=== PATIENT | female | born 1995 | race Caucasian/White ===

== ENCOUNTER 2019-07-23 19:01 | Inpatient (IN) | payer OTHER, MEDICAID, SELFPAY ==
[2019-07-23 19:15] VITALS: BP 100/69; PULSE 109
[2019-07-23 19:16] VITALS: BP 111/87; PULSE 108
[2019-07-23 19:42] VITALS: BMI 38.7
--- NOTE | 2019-07-23 19:44 | LDADM ---
This patient, Lorna Lawrence, was admitted to Labor/Delivery/Recovery 102 on 07/23/19 at 19:01. Plans for labor, pain management and were discussed with patient. Patient/family oriented to hospital policies and general routines including ID bracelet, bed and alarms, visiting hours, pain management, procedures, bathroom and other care routines, personal items, smoking policy, room service/diet and guest tray routines, infant security routines, and visiting hours. Patient/Family are encouraged to report perceived risks to care and to ask questions if they do not understand what they are told or what they should do. See OBIX for further documentation.
[2019-07-23 19:58] LABS: Hematocrit 37.8 % (37.0-47.0); Hemoglobin 12.6 g/dL (12.0-15.0); Immature Platelet Fraction Pct 12.9 % (0.9-11.2); Mean Corpuscular HGB Conc 33.3 g/dl (32-36); Mean Corpuscular Hemoglobin 26.4 pg (26-34); Mean Corpuscular Volume 79.2 fl (80-100); Mean Platelet Volume 12.8 fl (7.4-10.4); Platelet Count Result 217 k/mm3 (150-375); Red Blood Count 4.77 M/mm3 (4.2-5.4); Red Cell Distribution Width 13.5 % (11.5-14.5)
[2019-07-23] MEDS: DINOPROSTONE 10 MG VAG INSERT VAGINAL (20:03)
[2019-07-23 20:17] LABS: Band Neutrophils Percent 1 % (0-6); Giant Platelets Present; Monocytes Absolute Manual 0.48 K/mm3 (0.1-0.90); Monocytes Percent Manual 4 % (3-9); Neutrophils Absolute Manual 8.52 K/mm3 (1.7-7.2); Neutrophils Percent Manual 70 % (46-73); Platelet Estimate Adequate (Adequate); Total Cells Counted 100
[2019-07-23 23:07] VITALS: TEMP 37
[2019-07-24] VITALS (56 sets, daily range): BP systolic 91–135; BP diastolic 45–91; PULSE 66–148; TEMP 36.4–37.2; O2SAT 75–100
[2019-07-24 07:36] LABS: Rapid Plasma Reagin Non-Reactive (NonReactive)
[2019-07-24] MEDS: MISOPROSTOL 25 MCG TABLET VAGINAL ×2 (08:21→12:25)
--- NOTE | 2019-07-24 15:45 | WPDANESEPPF ---
Anes - Initial Pre Proc Eval Procedure: Labor Epidural Date/Time: 07/24/19 15:45 Surgeon: Mat Gonzalez MD Pre Op Diagnosis: IOL Patient Data Age: 24 Gender: F Height: 1.68 m Weight: 109 kg Last Vital Signs Temp 37.0 C 07/24/19 14:00 Pulse 92 07/24/19 14:00 BP 113/68 07/24/19 14:00 Allergies Allergy/AdvReac Type Severity Reaction Status Date / Time metoclopramide [From Reglan] Allergy Other Verified 07/03/19 12:29 phenazopyridine Allergy Other Verified 07/03/19 12:29 [From Pyridium] Home Medications Medication Instructions Recorded Confirmed Type 400 mcg PO DAILY 12/21/18 07/23/19 History omeprazole 20 mg PO AC PRN 07/03/19 07/23/19 History Laboratory Tests 07/23/19 07/23/19 07/23/19 19:47 19:47 19:47 WBC 12.0 K/mm3 H K/mm3 (4.5-10.0) RBC 4.77 M/mm3 M/mm3 (4.2-5.4) Hgb 12.6 g/dL g/dL (12.0-15.0) Hct 37.8 % % (37.0-47.0) MCV 79.2 fl L fl (80-100) MCH 26.4 pg pg (26-34) MCHC 33.3 g/dl g/dl (32-36) RDW 13.5 % % (11.5-14.5) Plt Count 217 k/mm3 k/mm3 (150-375) MPV 12.8 fl H fl (7.4-10.4) Immature Gran % (Auto) Not Reportable Neut % (Auto) Not Reportable Lymph % (Auto) Not Reportable Reagan % (Auto) Not Reportable Eos % (Auto) Not Reportable Baso % (Auto) Not Reportable Lymph # (Auto) Not Reportable Reagan # (Auto) Not Reportable Eos # (Auto) Not Reportable Baso # (Auto) Not Reportable Abs Immat Gran (auto) Not Reportable Absolute Neuts (auto) Not Reportable Absolute Nucleated RBC Not Reportable Total Counted 100 Neutrophils % (Manual) 70 % % (46-73) Band Neutrophils % 1 % % (0-6) Lymphocytes % (Manual) 25.0 % % (18-44) Monocytes % (Manual) 4 % % (3-9) Nucleated RBC % Not Reportable Abs Neuts (Manual) 8.52 K/mm3 H K/mm3 (1.7-7.2) Abs Lymphs (Manual) 3.00 K/mm3 K/mm3 (1.1-4.5) Abs Monocytes (Manual) 0.48 K/mm3 K/mm3 (0.1-0.90) Platelet Estimate Adequate (Adequate) Giant Platelets Present % Immature Plt Fraction 12.9 % H % (0.9-11.2) RPR Non-reactive (NonReactive) SARS-CoV-2 RNA (RT-PCR) Blood Type B Positive Antibody Screen Negative 07/24/19 08:16 WBC RBC Hgb Hct MCV MCH MCHC RDW Plt Count MPV Immature Gran % (Auto) Neut % (Auto) Lymph % (Auto) Reagan % (Auto) Eos % (Auto) Baso % (Auto) Lymph # (Auto) Reagan # (Auto) Eos # (Auto) Baso # (Auto) Abs Immat Gran (auto) Absolute Neuts (auto) Absolute Nucleated RBC Total Counted Neutrophils % (Manual) Band Neutrophils % Lymphocytes % (Manual) Monocytes % (Manual) Nucleated RBC % Abs Neuts (Manual) Abs Lymphs (Manual) Abs Monocytes (Manual) Platelet Estimate Giant Platelets % Immature Plt Fraction RPR SARS-CoV-2 RNA (RT-PCR) Pending Blood Type Antibody Screen Patient hx anesthesia problems: none Family hx anesthesia problems: none PMFSH Past Medical History Medical History No active medical problems Family History Family History Other Unknown family medical history Social History Social History Smoking status: Never smoker Substance use: never Spiritual care concerns: No Anes - Eval Final PreProcedure Day of Procedure 07/24/19 15
[2019-07-24] MEDS: LACTATED RINGERS 1,000 ML 125 ML IV CONT ×3 (16:10→23:42)
[2019-07-24 17:44] LABS: SARS-CoV-2 RNA PCR Negative
--- NOTE | 2019-07-24 17:56 | WPDOBADMIT ---
Obstetrics - Admit Note Admission Note: Patient doing well AROM clear fluid /-2 vertex clear fluid/. record reviewed. No pertinent additions to the history and/or any subsequent changes in the physical findings that are not consistent with the expected course of the were found. Additions to the history and/or subsequent changes in the physical findings follow. None.
[2019-07-24] MEDS: OXYTOCIN 30 UNITS/NS 500 ML 30 UNITS/500 ML BAG IV CONT (20:37)
[2019-07-24] MEDS: ONDANSETRON INJ 4 MG/2 ML VIAL IV PUSH (23:23)
[2019-07-25] VITALS (106 sets, daily range): BP systolic 93–171; BP diastolic 39–113; PULSE 54–150; RESP 16–18; TEMP 36.7–38.2; O2SAT 95–100
[2019-07-25] MEDS: LACTATED RINGERS 1,000 ML 125 ML IV CONT (05:54)
[2019-07-25] MEDS: OXYTOCIN 30 UNITS/NS 500 ML 30 UNITS/500 ML BAG IV CONT (07:34)
[2019-07-25] MEDS: BENZOCAINE 20% AER SPR (*SP) 56 GM CAN 1 SPRAY TOPICAL (09:32)
[2019-07-25] MEDS: IBUPROFEN 600 MG TABLET PO ×2 (09:32→17:18)
[2019-07-25] MEDS: WITCH HAZEL 40 PADS 1 PAD TOPICAL (09:32)
--- NOTE | 2019-07-25 09:51 | PC.NURSE ---
Pt arrived on unit via wheelchair accompanied by spouse and and taken to room 278. Pt oriented to room and surrounding area. PT introductions made and plan of care discussed per post , pain management, breast feeding, daily care activities. PT verbalized understanding of such care. Welcome packet reviewed and discussed.
[2019-07-25] MEDS: MULTIVIT/MIN/PREN/FOL AC/IRON TABLET 1 TAB PO (10:35)
[2019-07-25] MEDS: DOCUSATE SODIUM 100 MG CAPSULE PO ×2 (10:35→17:18)
[2019-07-25] MEDS: POLYSACCHARIDE IRON COMPLEX 150 MG CAPSULE PO (10:35)
[2019-07-25] MEDS: ACETAMINOPHEN 325 MG TABLET 650 MG PO ×2 (10:36→17:18)
[2019-07-25] MEDS: LANOLIN (LANSINOH) 7.5 GM CREAM 1 APPLIC TOPICAL (10:37)
--- NOTE | 2019-07-25 11:00 | PC.NURSE ---
Consulted with patient, mother reports infant has been sleepy and has not latched since . Infant will make attempts but unable to draw nipple in deeply. Reviewed infant feeding cues, frequencies, duration of feedings, feeding elimination flow sheet, and signs of adequate intake. Demonstrated stimulation techniques to wake for feeding. Assisted with to breast. Reviewed positioning/alignment in cross cradle, holding breast in U hold and guided asymmetrical latch on. was sleepy and made a few weak attempt to latch. again stimulated to wake, more eager with some good attempts for 15 minutes. unable to draw nipple in. Offered and explained a nipple shield. Nipple shield provided to mother due to ineffective latch. Discussed nipple shield precautions and possible complications. Instructions given on application and cleaning of shield. Patient able to return demonstration on proper application of shield. Discussed the need to initiate pumping if continues to nurse with the shield. Patient verbalizes understanding. With shield in place was able to latch correctly. Infant nursed eagerly with steady draws for burst followed with long pausing, occasional swallowing noted. Reviewed signs of a correct latch, effective nursing and suck swallow ratio. was able to maintain latch without discomfort to mother. Nipple care reviewed. Encouraged parents to stimulate to keep awake and nursing effectively for increased intake and assist with maintaining deep latch. FOB at bedside eager to assist. Instructed mother to call out for RN assistance if she is unable to latch infant for feeding or she has discomfort with nursing. Instructed feeding should be initiated three hours from start of last feeding or if feeding cues are noted before. Mother voiced understanding of information shared.
--- NOTE | 2019-07-25 14:10 | PC.NURSE ---
Mother called out for assist with feeding. With shield in place infant was able to latch correctly. Infant nursed eagerly with steady draws for burst followed with long pausing, occasional swallowing noted. is more awake and eagerly nursing this feeding. Reviewed signs of a correct latch, effective nursing and suck swallow ratio. was able to maintain latch without discomfort to mother. Nipple care reviewed. Encouraged parents to stimulate to keep awake and nursing effectively for increased intake and assist with maintaining deep latch. FOB at bedside eager to assist. Instructed mother to call out for RN assistance if she is unable to latch infant for feeding or she has discomfort with nursing. Instructed feeding should be initiated three hours from start of last feeding or if feeding cues are noted before. Mother voiced understanding of information shared.
--- NOTE | 2019-07-25 14:20 | PM.OBPRVD ---
OB - Delivery Note Procedure Delivery date: 07/25/19 events: Labor Induction Intrapartal events: None Induction method: AROM and per pitocin protocol Delivery monitor: external FHT and external uterine Route of delivery: Laceration description: None Delivery repair: vicryl Specimen: Yes Estimated blood loss (mL): 75 Anesthesia type: Epidural [place] Baby Date of : 07/25/19 Time of : 14:02 Weeks of gestation at delivery: 39 gender: Female Weight (pounds): 7 Weight (ounces): 6 presentation: vertex Placenta delivery description: Spontaneous cord vessel description: 3 Vessels and Nuchal Cord score one minute: 9 score five minutes: 9
--- NOTE | 2019-07-25 14:26 | P.PCNOB_ITS ---
OB - Delivery Note Procedure events: Labor Induction Intrapartal events: None Laceration description: None Estimated blood loss (mL): 75 Anesthesia type: Epidural [place] Baby Date of : 07/25/19 Time of : 14:02 Weeks of gestation at delivery: 39 gender: Female Weight (pounds): 7 Weight (ounces): 6 presentation: vertex Placenta delivery description: Spontaneous score one minute: 9 score five minutes: 9
--- NOTE | 2019-07-25 14:28 | P.PCNOB_ITS ---
OB - Delivery Note Procedure Delivery date: 07/25/19 events: Labor Induction Intrapartal events: None Induction method: AROM, per misoprostol protocol and per pitocin protocol Delivery monitor: external FHT, external uterine and internal uterine Route of delivery: Laceration description: Perineal - 2nd Degree Delivery repair: vicryl Estimated blood loss (mL): 200 Anesthesia type: Epidural [place] Baby Date of : 07/25/19 Time of : 06:58 Weeks of gestation at delivery: 39 Infant gender: Female Weight (pounds): 7 Weight (ounces): 5 presentation: vertex Placenta delivery description: Spontaneous cord vessel description: 3 Vessels and Clamped/Cut score one minute: 9 score five minutes: 9
--- NOTE | 2019-07-25 17:01 | PC.NURSE ---
Breast pump provided due to nipple shield use. Instructions given on breast pump care and usage, pumping schedule, nipple care, and collection and storage of breast milk. Encouraged [id number], breast massage and manual expression to stimulate supply. Assessed patient for correct flange size, placement and draw. Patient verbalizes and demonstrates understanding of instructions.
[2019-07-26 05:32] LABS: Hematocrit 30.4 % (37.0-47.0); Hemoglobin 9.9 g/dL (12.0-15.0)
[2019-07-26 07:45] VITALS: BP 97/61; PULSE 72; RESP 18; TEMP 37; O2SAT 99
--- NOTE | 2019-07-26 07:55 | PM.OBPNVD ---
OB - PN: Subj Subjective Date/time seen: 07/26/19 07:55 S: doing well no complaints concerned with breast feeding OB - PN: Obj Data Labs CBC & Chem 7: 07/26/19 04:34 Labs: Laboratory Results - last 24 hr 07/26/19 04:34 Hgb 9.9 L Hct 30.4 L OB - PN A/P Assessment and Plan (1) (normal spontaneous vaginal delivery): Code(s): O80 - Encounter for full-term uncomplicated delivery Status: Acute Assessment and Plan: continue with pp care. Time Spent With Patient Time: Total time spent is greater than 50% in coordination of care (as documented) at patient's floor/unit and/or counseling patient: Exam Const: General: comfortable GI: Other: ff fundus at umbilicus
[2019-07-26] MEDS: DOCUSATE SODIUM 100 MG CAPSULE PO ×2 (08:13→17:29)
[2019-07-26] MEDS: POLYSACCHARIDE IRON COMPLEX 150 MG CAPSULE PO ×2 (08:13→17:29)
[2019-07-26] MEDS: IBUPROFEN 600 MG TABLET PO (08:13)
[2019-07-26] MEDS: MULTIVIT/MIN/PREN/FOL AC/IRON TABLET 1 TAB PO (08:13)
[2019-07-26] MEDS: TETANUS,DIPHTHERIA,AC PERTUSSIS ADULT (0.5 ML) BOOSTRIX IM (08:14)
--- NOTE | 2019-07-26 10:05 | PC.NURSE ---
Mother called out for assist with feeding. Upon entering mother is tearful and attempting to breast. Mother states she is confused with feeding, she will supplement after some breastfeedings with shield if is fussy and will be sleepy after some feedings but will wake within 30 minutes wanting to feed again. Mother is tired and reports she did not sleep during the night. Suggested a feeding plan for mother to feed every three hours, then FOB supplement 15-20 mls and mother pump, allowing all to rest between feedings. Time at the breast will vary with infant's eagerness, allowing infant to attempt at lest 10 minutes and allowing to nurse both breasts if eager and has effective suckling. Reviewed infant feeding cues, frequencies, duration of feedings, feeding elimination flow sheet, and signs of adequate intake. Demonstrated stimulation techniques to wake infant for feeding. Assisted with to breast with the nipple shield. Reviewed positioning/alignment in football, holding breast in C hold and guided asymmetrical latch on. Discussed rational for each. was able to latch correctly. nursed eagerly with steady draws and occasional swallowing for short burst, followed with long pausing. Reviewed signs of a correct latch, effective nursing and suck swallow ratio. was able to maintain latch without discomfort to mother. Nipple care reviewed. Mother reports was more awake and eager this feeding than most during the night. Instructed mother to call out for RN assistance if she is unable to latch infant for feeding or she has discomfort with nursing. Instructed feeding should be initiated three hours from start of last feeding or if feeding cues are noted before. Mother voiced understanding of information shared.
[2019-07-26 18:29] VITALS: BP 122/82; PULSE 71; RESP 16; TEMP 36.9; O2SAT 95
--- NOTE | 2019-07-27 08:00 | PC.NURSE ---
PT introductions made and plan of care discussed per post , pain management, breast feeding, daily care activities and pending discharge to home. PT verbalized understanding of such care.
[2019-07-27 09:24] VITALS: BP 104/63; PULSE 83; RESP 18; TEMP 37
[2019-07-27 10:00] VITALS: PULSE 83; RESP 18; O2SAT 95
--- NOTE | 2019-07-27 10:04 | PM.OBPNVD ---
OB - PN: Subj Subjective Date/time seen: 07/27/19 10:04 Patient comments: no complaints baby status: doing well [employer] feeding status: exclusively breast feeding OB - PN: Obj Data Labs CBC & Chem 7: 07/26/19 04:34 OB - PN A/P Time Spent With Patient Time: Total time spent is greater than 50% in coordination of care (as documented) at patient's floor/unit and/or counseling patient: d/c home Review of Systems Gastrointestinal: Comments: ff below umbilicus
[2019-07-27] MEDS: DOCUSATE SODIUM 100 MG CAPSULE PO (10:17)
[2019-07-27] MEDS: POLYSACCHARIDE IRON COMPLEX 150 MG CAPSULE PO (10:18)
[2019-07-27] MEDS: IBUPROFEN 600 MG TABLET PO (10:18)
[2019-07-27] MEDS: MULTIVIT/MIN/PREN/FOL AC/IRON TABLET 1 TAB PO (10:18)
[2019-07-27] MEDS: ACETAMINOPHEN 325 MG TABLET 650 MG PO (10:19)
[2019-07-27] MEDS: MEASLES,MUMPS,RUBELLA VACCINE 0.5 ML VIAL (10:23)
--- NOTE | 2019-07-27 10:23 | PC.NURSE ---
Patient viewed the discharge video Mother & Baby Care, The First Two Weeks . Patient was given the opportunity and encouraged to ask questions. Patient verbalized understanding of information shared and has been given the mother/baby guide for home reference.
--- NOTE | 2019-07-27 12:23 | PC.NURSE ---
PT discharged to home ambulatory accompanied by spouse and and taken to waiting car. Follow up appts confirmed
--- NOTE | 2019-07-27 13:02 | PC.NURSE ---
Addendum entered by Bravo Urbina RN 07/27/19 13:03: actual time was 0800 Original Note: PT given discharge instructions per protocol and verbalized understanding of such care.
[2019-07-29 08:56] VITALS: BP 113/66; PULSE 75; RESP 20; TEMP 36.9; O2SAT 100
--- NOTE | 2019-08-12 06:25 | PM.OBDSVD ---
DS: Admitting Diagnosis Admitting Diagnosis Admitting Diagnosis: Encounter for supervision of normal , unspecified, third trimester DS: Discharge Diagnosis Discharge Diagnosis (1) (normal spontaneous vaginal delivery): Code(s): O80 - Encounter for full-term uncomplicated delivery Status: Acute OB - DS: Summary OB Procedures : None OB Procedures Intrapartum: Spontaneous Vag Delivery OB Procedures: : None Time Spent with Patient Time attestation: Total time spent providing and/or coordinating discharge services: Exam Const: General: comfortable Resp: Effort & Inspection: normal respiratory effort Cardio: Rate: regular rate GI: GI Palp: Yes Soft to palpation Discharge Plan Discharge Attending physician on discharge: Mat Gonzalez Discharging Clinician: Mat Gonzalez Patient Disposition: Home, Self-Care Activity: may shower and pelvic rest Diet: regular Discharge Instructions: Education: Mom and Baby Guide Given to: Mother Follow-Up: Call your delivering provider's office for an appointment to be seen in: 4 Weeks Mom and baby should come to the [facility] for the follow-up appointment. Appointment Date/Time: July 29, 2019 at 8:00 am What to expect at your follow-up visit: Blood Pressure Check Call [phone] if you are unable to keep your appointment time. BREAST CARE: 1. Wear a snug supportive bra. 2. For engorgement discomfort: Breast Feeding: A. Apply warm moist washcloths B. Express milk as needed to relieve engorgement C. Wear loose clothing Bottle Feeding: A. May apply ice packs 3. For sore nipples: A. Identify correct latch-on B. Apply warm moist washcloths before and after nursing C. Air dry nipples after nursing D. May apply Lansinoh cream to nipples PERINEAL CARE: 1. Until bleeding stops, use your kori bottle after urinating 2. Change your pad frequently throughout the day 3. You may take sitz baths several times a day (fill your bathtub with warm water and soak for 20 minutes.) Do NOT bathe in the water 4. No tub baths until seen by your physician - You may shower ACTIVITY: 1. Rest as much as possible. 2. Do not exercise or lift anything heavier than your baby (such as laundry or other children.) 3. Avoid stairs or driving as much as possible. 4. Do not put anything into the vagina. No douching, tampons, or sexual activity until seen by physician. NOTIFY PHYSICIAN IF YOU HAVE ANY QUESTIONS OR IF ANY OF THE FOLLOWING SYMPTOMS OCCUR: 1. If your perineum becomes red, swollen, or more painful than what you have experienced in the hospital. 2. If your vaginal bleeding becomes foul smelling. 3. If your vaginal bleeding becomes more heavy than a period or if your bleeding changes from pink to bright red. However, you may pass an occasional walnut-sized clot once or twice for the first week . 4. If you experience a sharp, shooting pain in you calves. 5. If you discover a hard, reddened area on your breast or if you experience flu-like symptoms. 6. Call for temp 100.4 or greater DIET: 1. Eat regular, well-balanced meals. 2. Drink plenty of fluids daily. If , drink to thirst. Patient Instructions: Antibiotic Form Stand Alone Forms: General Discharge Information Follow-up/Referrals: Mat Gonzalez MD [Physician] - Discharge Medications: New acetaminophen [Mapap (acetaminophen)] 325 mg Tablet 650 mg PO Q6H PRN (Reason: Mild Pain (1-3) Or Headache) RF: 0 Dermoplast (with menthol) 20-0.5 % Aerosol 1 spray topical PRN PRN (Reason: Perineal Discomfort) RF: 0 polysaccharide iron complex 150 mg iron Capsule 150 mg PO BIDWM RF: 0 docusate sodium 100 mg Capsule 100 mg PO BID PRN (Reason: Constipation) RF: 0 zolpidem 5 mg Tablet 5 mg PO HS PRN (Reason: Insom
== END 2019-07-27 12:23 | disposition home or self-care (01) | DRG 806 ==
LOC: ANHLDR 19:58 → ANHOB2 07-25 09:57
PROVIDERS: Admitting Provider Obstetrics & Gynecology; PCP Internal Medicine; Visit Provider Obstetrics & Gynecology
DX: O99.214 Obesity complicating childbirth (principal); O75.2 Pyrexia during labor, not elsewhere classified; Z37.0 Single live birth; Z3A.39 39 weeks gestation of pregnancy; E66.9 Obesity, unspecified; O70.1 Second degree perineal laceration during delivery
CPT/HCPCS: 36415; 85014; 85018; 85025; 85055; 86592; 86850; 86900; 86901; 87635; 90710; 90715; A9270; C9803; J2405; J2590; J2795; J7120; U0003

== ENCOUNTER 2021-11-10 16:54 | Outpatient (CLI) | payer OTHER, MEDICAID, SELFPAY ==
[2021-11-10 17:38] LABS: Beta HCG Quantitative < 2.39 mIU/ML
== END 2021-11-10 16:55 | disposition home or self-care (01) ==
LOC: ANHLAB 16:56
PROVIDERS: PCP Internal Medicine; Visit Provider Obstetrics & Gynecology Gynecology
DX: O20.0 Threatened abortion (principal)
CPT/HCPCS: 36415; 84702; 86850; 86900; 86901

== ENCOUNTER 2022-12-04 12:39 | Emergency (ER) | payer OTHER, MEDICAID, SELFPAY ==
--- NOTE | ~2022-12-04 | US_ITS ---
EXAMINATION: US transvaginal DATE: 12/04/2022 16:20 INDICATION: Right lower quadrant pelvic pain TECHNIQUE: Multiple transabdominal and endovaginal sonographic images of the pelvis were obtained. COMPARISON: None. FINDINGS: The uterus measures 8.9 x 3.8 x 3.7 cm. The endometrial complex measures 9 mm in thickness. 6 mm nab othian cyst at the cervix. The right ovary measures 4.8 x 3.8 x 3.7 cm. There is a 3.3 cm complex cys t in the right ovary with peripheral hypoechoic regions and anechoic regions with reticulated pattern of thin echogenic internal septations most consistent with an evolving hemorrhagic cyst. The left ov kassidy measures 2.4 x 2.0 x 2.5 cm. After flow identified in both ovaries on color Doppler. There is sma ll amount of free fluid in the pelvis. IMPRESSION: 1. 3.3 cm complex cystic lesion in the left ovary with appearance most suggestive of a hemorrhagic cy st. Recommend follow-up ultrasound in 8-12 weeks to document resolution. Reviewed, dictated and finalized at location A. IMPRESSION: 1. 3.3 cm complex cystic lesion in the left ovary with appearance most suggesti ve of a hemorrhagic cyst. Recommend follow-up ultrasound in 8-12 weeks to docum ent resolution.
[2022-12-04 12:42] VITALS: BP 138/83; PULSE 82; RESP 14; TEMP 36.7; O2SAT 99
[2022-12-04 13:13] LABS: Basophils Absolute Auto 0.1 K/mm3 (0.0-0.1); Basophils Percent Auto 0.7 % (0.2-1.2); Eosinophils Absolute Auto 0.2 K/mm3 (0-0.3); Hematocrit 44.9 % (37.0-47.0); Immature Granulocyte Absolute 0.01 K/mm3 (0.00-0.031); Immature Granulocyte Percent A 0.1 % (0-0.5); Lymphocytes Absolute Auto 2.14 K/mm3 (0.9-3.2); Lymphocytes Percent Auto 28.5 % (18.3-44.2); Mean Corpuscular HGB Conc 33.4 g/dl (32-36); Mean Corpuscular Hemoglobin 27.9 pg (26-34); Mean Corpuscular Volume 83.5 fl (80-100); Mean Platelet Volume 12.1 fl (7.4-10.4); Monocytes Absolute Auto 0.4 K/mm3 (0.1-0.6); Monocytes Percent Auto 5.3 % (2.6-8.5); Neutrophils Absolute Auto 4.8 K/mm3 (1.3-6.7); Neutrophils Percent Auto 63.4 % (45.5-73.1); Platelet Count Result 238 k/mm3 (150-375); Red Blood Count 5.38 M/mm3 (4.2-5.4); Red Cell Distribution Width 12.8 % (11.5-14.5); White Blood Count 7.5 K/mm3 (4.5-10.0)
[2022-12-04 13:17] LABS: Appearance Urine Clear (Clear); Bilirubin Urine Negative (Negative); Blood Urine Negative (Negative); Color Urine Yellow (Yellow); Glucose Urine UA Negative (Negative); Ketones Urine Trace mg/dL (Negative); Leukocyte Esterase Ur Negative LEU/UL (Negative); Nitrate Urine Negative (Negative); Protein Urine Negative (Negative); Specific Grav Ur 1.021 (1.001-1.035); pH Urine 6.5 (5.0-9.0)
[2022-12-04 13:18] LABS: Add Urine Microscopic? NO
[2022-12-04 13:22] LABS: Alanine Aminotransferase 18 U/L (6-35); Albumin Level 4.2 g/dL (3.5-5.1); Alkaline Phosphatase 63 U/L (38-126); Anion Gap 8 mmol/L (8-16); Aspartate Amino Transferase 26 U/L (14-36); Bilirubin,Total 1.5 mg/dL (0.2-1.3); Blood Urea Nitrogen 12 mg/dL (7-17); Calcium 9.2 mg/dL (8.4-10.2); Carbon Dioxide 26 mmol/L (22-30); Chloride 103 mmol/L (98-107); Estimated CRCL calculation 111 ml/min; Estimated Glomerular Filt Rate > 60; Glucose 91 mg/dL (65-110); Lipase 49 U/L (23-300); Potassium 3.7 mmol/L (3.4-5.0); Sodium 137 mmol/L (137-145)
[2022-12-04] MEDS: LACTATED RINGERS 1,000 ML 999 ML IV CONT (13:29)
[2022-12-04] MEDS: MORPHINE SULFATE (*CRX) 4 MG/ML INJ IV PUSH (13:29)
--- NOTE | 2022-12-04 14:07 | ED.ABDPAIN ---
HPI - Abdominal Pain General Chief Complaint: Abdominal Pain Stated Complaint: abd cramping Time Seen by Provider: 12/04/22 12:59 Source: patient and family ( [place]) History of Present Illness HPI narrative: 37 yo F who presents with acute abdominal pain that woke her at 0100. She had some nausea at first but denies any vomiting, diarrhea, or fevers. No vaginal discharge. She notes decreased appetite but KAILYN was a sandwich at lunch. LBM yesterday and normal. No constipation, melena, hematochezia. Only home medicaiton is B12 vitamin. Took 500mg Tylenol at 4am. This has never happened before. Initially 7/10 pain, now 3/10. LMP 11/04/2022; her periods are slightly irregular but her last period was normal duration and flow. Continues to pass flatus. No dysuria, hematuria, frequency/urgency. Sexually active with 1 male partner. No abnormal PAPs. Pain is in low abdomen, across LLQ and RLQ and inferior to umbilicus. Related Data Allergies Allergy/AdvReac Type Severity Reaction Status Date / Time metoclopramide [From Reglan] Allergy Other Verified 12/04/22 12:48 phenazopyridine Allergy Other Verified 12/04/22 12:48 [From Pyridium] [facility] Past Medical History Medical History No active medical problems (normal spontaneous vaginal delivery) Family History Family History Mother Fibroid Social History Social History Smoking status: Never smoker Substance use: never Spiritual care concerns: No Exam Const: General: healthy appearing; No confusion, diaphoretic or ill appearing Limitations: no limitations HENMT: Head: normal to inspection Face/Nose/Sinus: Normal external nose present Face and sinus: normal facial exam Eyes: Conjunctivae: conjunctivae normal Resp: Effort & Inspection: normal respiratory effort Cardio: Rate: regular rate GI: Inspection: non-distended GI Palp: Yes Soft to palpation and Yes Tenderness to palpation present (GI) (mild TTP in RLQ and LLQ) Auscultation: normal bowel sounds Other: Rovsing sign negative. Psoas sign negative. Obturator sign positive. McBurney pont tenderness equivocal. Skin: General skin exam: normal color Rashes: no rashes Other: abdominal striae but otherwise no ecchymosis or lesions Neuro: General: patient oriented x3 Speech: normal speech Psych: Mental Status: mental status grossly normal Affect: normal affect Attitude: cooperative Course Course Emergency Course: Will obtain labs and give fluids and analgesic medication. Vital Signs Vital signs: Vital Signs Temperature 98.0 F 12/04/22 12:42 Pulse Rate 82 12/04/22 12:42 Respiratory Rate 14 12/04/22 12:42 Blood Pressure 138/83 12/04/22 12:42 Pulse Oximetry 99 12/04/22 12:42 Oxygen Delivery Room Air 12/04/22 12:42 Temperature 98.0 F 12/04/22 12:42 Pulse Rate 88 12/04/22 17:05 Respiratory Rate 16 12/04/22 17:05 Blood Pressure 142/80 H 12/04/22 17:05 Pulse Oximetry 99 12/04/22 17:05 Oxygen Delivery Room Air 12/04/22 12:42 MDM - Abdominal Pain MDM Narrative Medical decision making narrative: Summers Score RLQ tenderness (No 0, Yes +2): 2 Temp 37.3C (No 0, Yes +1): 0 Rebound tenderness (No 0, Yes +1): 1 Migration of pain to the RLQ (No 0, Yes +1): 1 Anorexia (No 0, Yes +1): 0 Nausea/vomiting (No 0, Yes +1): 0 Leukocytosis >10K (No 0, Yes +2): 0 Leukocyte left shift >75% neutrophils (No 0, Yes +1): 0 Total Result = 4; appendicitis unlikely Other causes of right lower quadrant pain in my differential diagnosis include but are not limited to nephrologic diseaes like kidney stone, ovarian pathology like torsion or tubo-ovarian abscess, and other GI pathology like colitis or diverticulitis. Labs performed as below. US shows cystic lesion and evidence
[2022-12-04 14:30] VITALS: BP 118/65; PULSE 70; O2SAT 100
[2022-12-04 16:37] VITALS: BP 122/73; PULSE 76; O2SAT 100
[2022-12-04] MEDS: KETOROLAC 15 MG/ML VIAL (*BKC) IV PUSH (17:03)
[2022-12-04 17:05] VITALS: BP 142/80; PULSE 88; RESP 16; O2SAT 99
== END 2022-12-04 17:05 | disposition home or self-care (01) ==
PROVIDERS: Physician Assistant; Emergency Provider Student in an Organized Health Care Education/Training Program; PCP Internal Medicine
DX: N83.202 Unspecified ovarian cyst, left side (principal)
CPT/HCPCS: 36415; 76830; 80053; 81003; 81025; 83690; 85025; 96361; 96374; 96375; 99284; J1885; J2270; J7120

== ENCOUNTER 2024-03-20 15:51 | Outpatient (CLI) | payer OTHER, SELFPAY ==
--- NOTE | ~2024-03-20 | US_ITS ---
EXAMINATION: US pelvic complete INDICATION: Pelvic pain Comparison:12/04/2022 TECHNIQUE: Multiple transabdominal and endovaginal sonographic images of the pelvis performed. FINDINGS: The uterus measures 9.8 x 4.4 x 5.9 cm. The endometrial complex measures 1.2 cm. The right ovary measures 2.5 x 3.3 x 2.1 cm and the left ovary measures 3.6 x 2.9 x 3.5 cm. There ar e small follicles in each ovary. Normal doppler signal in both ovaries. There is no free fluid in the pelvis. There are no abnormal masses seen on either side. IMPRESSION: 1. Mildly prominent endometrium. Otherwise, unremarkable pelvic ultrasound. Reviewed, dictated and finalized at location A. OGICAL TECHNICIAN
== END 2024-03-20 15:52 | disposition home or self-care (01) ==
LOC: MICIMG 15:52
PROVIDERS: PCP Nurse Practitioner Women's Health; Visit Provider Nurse Practitioner Women's Health
DX: R10.2 Pelvic and perineal pain (principal)
CPT/HCPCS: 76856

== ENCOUNTER 2025-01-21 11:24 | Outpatient (CLI) | payer OTHER, SELFPAY ==
--- NOTE | ~2025-01-21 | US_ITS ---
EXAMINATION: US OB <=14 wk fetus w TV DATE: 01/21/2025 11:56 INDICATION: History of spontaneous . TECHNIQUE: Real-time transabdominal and transvaginal obstetric ultrasound. FINDINGS: No prior studies for comparison. The uterus measures 10.7 x 5.7 x 5.9 cm. There is an intrauterine gestational sac measuring 1.05 cm corresponding to 5 week 0 day gestation. No definitive pole identified. No heart motions. Yolk sac is present. Ovaries within normal limits without significant solid or cystic mass. Right ovary measures 2.8 x 2 x 1.8 cm. Left ovary measures 4.3 x 2.8 x 3.5 cm. IMPRESSION: 1. Intrauterine gestational sac corresponding to 5 weeks 0 day gestation without pole, consistent with early gestational age. Yolk sac is present. Recommend follow-up with serial quantitative beta-hCG levels and ultrasound as clinically warranted. Reviewed, dictated and finalized at location I. [employer] IMPRESSION: 1. Intrauterine gestational sac corresponding to 5 weeks 0 day gestation withou t pole, consistent with early gestational age. Yolk sac is present. Recom mend follow-up with serial quantitative beta-hCG levels and ultrasound as clini bert warranted.
== END 2025-01-21 11:25 | disposition home or self-care (01) ==
LOC: MICIMG 11:24
PROVIDERS: PCP Obstetrics & Gynecology Gynecology; Visit Provider Obstetrics & Gynecology Gynecology
DX: O26.21 Pregnancy care for patient with recurrent pregnancy loss, first trimester (principal); Z3A.00 Weeks of gestation of pregnancy not specified
CPT/HCPCS: 76801; 76817

== ENCOUNTER 2025-02-03 12:53 | Outpatient (CLI) | payer OTHER, SELFPAY ==
--- NOTE | ~2025-02-03 | US_ITS ---
EXAMINATION: US OB transvaginal, 02/03/2025 12:55 CLIENT SUPPORT COORDINATOR HISTORY: uncertain dates Comparison: None Technique: Nicholas-scale and color Doppler images were obtained. Findings: Intrauterine gestational sac with pole identified corresponding to 7 weeks and 4 days, heart rate 171. The uterus is anteverted measuring 10.6 x 5.8 x 6.1 cm. Sac is also demonstrated. Right ovary 3.6 x 1.8 x 2.6 cm, left ovary 2.9 x 3.1 x 3 cm, no adnexal mass, normal flow. IMPRESSION: Single live intrauterine . Reviewed, dictated and finalized at location P. NT SUPPORT COORDINATOR IMPRESSION: Single live intrauterine .
== END 2025-02-03 12:54 | disposition home or self-care (01) ==
LOC: MICIMG 12:54
PROVIDERS: PCP Obstetrics & Gynecology Gynecology; Visit Provider Obstetrics & Gynecology Gynecology
DX: Z36.87 Encounter for antenatal screening for uncertain dates (principal)
CPT/HCPCS: 76817

== ENCOUNTER 2025-02-07 17:41 | Emergency (ER) | payer OTHER, SELFPAY ==
--- OUTSIDE RECORDS SUMMARY | 2025-02-07 17:43 | XMS_ITS | Clinical Summary ---
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 Gender Identity Not on file Sexual Orientation Not on file Plan of Treatment Health Maintenance Due Date Last Done Comments CERVICAL CANCER SCREENING 01/24/2017 HPV/Cotest (21-29) 01/24/2017 PAP SMEAR 01/24/2017 DTAP/TDAP/TD VACCINES (2 - T d or Tdap) 08/30/2020 08/30/2010 INFLUENZA VACCINE (#1) 2024 4, 01/03/2012, 02/17/2011, Additional history exists HEPATITIS B VACCINES Completed 11/17/1999, 1996, 1996 HPV VACCINES Completed 01/03/2012, 08/30/2010 Insurance [employer] [id number] [facility] [place]IONS [id number] Care Teams Labview Programmer Relationship Specialty Start Date End Date Juan Alberto Foss MD [address] [place] [address] [address] [place], [place] [id number] PCP - General Internal Medicine 04/09/19
--- OUTSIDE RECORDS SUMMARY | 2025-02-07 17:43 | XMS_ITS | Clinical Summary ---
Author Organization [facility] Address [facility]ly [facility] [place] [address] Care Team Providers Care Protective Signal Installer Helper Name Role Phone Juan Alberto Foss MD Primary Care Provider [phone] Allergies Active Allergy Reactions Criticality Noted Date Comments Metoclopramide Other (see comment) 04/28/2019 Can't control muscles in face Medications vitamin, low iron, ( VITAMIN WITH IRON) 27-0.8 MG tablet Take 1 tablet by mouth daily. Active ondansetron 4 MG tablet Take 4 mg by mouth every 8 (eight) hours as needed for Nausea. Active vitamin D2, ergocalciferol, 95108 UNITS capsule Take 50,000 Units by mouth every 7 days. Active Active Problems Estimated Date of Delivery Comme nts Yes 07/29/2019 No known active problems Family History Medical History Relation Comments None Neg Hx Social History Tobacco Use Types Packs/Day Years Used Date Smoking Tobacco: Never Smokeless Tobacco: Never Alcohol Use Standard Drinks/Week Comments Not Currently 0 (1 standard drink = 0.6 oz pur e alcohol) Estimated Date of Delivery Comme nts Yes 07/29/2019 Sex and Gender Information Value Date Recorded Sex Assigned at Not on file Legal Sex Female 4:18 PM CDT Gender Identity Not on file Sexual Orientation Not on file Last Filed Vital Signs Vital Sign Reading Time Taken Comments Blood Pressure 115/61 04/28/2019 8:38 AM CDT Pulse 97 04/28/2019 8:38 AM CDT Temperature 36.7 C (98 F) 04/28/2019 8:38 AM CDT Respiratory Rate 18 04/28/2019 8:38 AM CDT Oxygen Saturation 99% 04/28/2019 8:38 AM CDT Inhaled Oxygen Concentration - - Weight 108.9 kg (240 lb) 04/28/2019 8:38 AM CDT Height 167.6 cm (5' 6) 04/28/2019 8:38 AM CDT Body Mass Index 38.74 04/28/2019 8:38 AM CDT Plan of Treatment Health Maintenance Due Date Last Done Comments Cervical Cancer Screening Pap Smear (Age 21 to 29) Every 3 Years 1996 Cervical Cancer Screening 1996 Annual Physical 01/24/1999 Hepatitis C 01/24/2014 DTaP, Tdap and Td Vaccines (3 - Td or Tdap) 08/30/2020 08/30/2010, 06/06/2009 COVID-19 Vaccine ( season) 2024 Influenza Adult (#1) 2024 12/11/2013, 01/03/2012, 02/17/2011, Additional history exists RSV Immunization or 60+ Years (1 - 1-dose 75+ series) 01/24/2071 Hepatitis B Vaccines Completed 11/17/1999, 1996, 1996 Hepatitis A Vaccines Completed 12/03/2008, 11/22/19 07 HPV Vaccines Completed 01/03/2012, 08/20, 12/03/2008 Meningococcal Vaccine Aged Out 09/12/2013, 011 No longer eligible based on patient's age to complete this topic Meningococcal B Vaccine Aged Out No l onger eligible based on patient's age to complete this topic Pneumococcal Vaccine: Pediatrics (0 to 5 Years) and At-Risk Patients (6 to 49 Years) Aged Out No longer eligible based on patient's age to complete this topic RSV Immunizations Under 20 Months Aged Out No longer eligible based on patient's age to complete this topic Insurance MEDICAID [facility] Care Teams Protective Signal Installer Helper Relationship Specialty Start Date End Date Juan Alberto Foss MD [address] [facility] [address] [place] [address] PCP - General INTERNAL MEDICINE 04/28/19
[2025-02-07 17:55] VITALS: BP 141/84; PULSE 78; RESP 20; TEMP 36.4; O2SAT 100
[2025-02-07 19:43] VITALS: BP 129/97; PULSE 82; RESP 16; O2SAT 100
[2025-02-07 19:56] VITALS: BP 129/97; PULSE 66; RESP 17; O2SAT 100
[2025-02-07 20:04] LABS: Hematocrit 44.2 % (37.0-47.0); Hemoglobin 15.3 g/dL (12.0-15.0); Immature Granulocyte Percent A 0.3 % (0-0.5); Lymphocytes Absolute Auto 2.33 K/mm3 (0.9-3.2); Mean Corpuscular HGB Conc 34.6 g/dl (32-36); Mean Corpuscular Hemoglobin 28.1 pg (26-34); Mean Corpuscular Volume 81.3 fl (80-100); Nucleated Red Blood Cells Absolute Auto 0.000 K/mm3 (0.0-0.012); Nucleated Red Blood Cells Perc 0.0 % (0.0-0.2); Platelet Count Result 255 k/mm3 (150-375); Red Blood Count 5.44 M/mm3 (4.2-5.4); White Blood Count 9.7 K/mm3 (4.5-10.0)
[2025-02-07 20:08] LABS: Alanine Aminotransferase 13 U/L (6-35); Albumin Level 4.7 g/dL (3.5-5.1); Alkaline Phosphatase 60 U/L (38-126); Anion Gap 11 mmol/L (4-12); Aspartate Amino Transferase 21 U/L (14-36); Bilirubin,Total 1.4 mg/dL (0.2-1.3); Blood Urea Nitrogen 12 mg/dL (7-17); Calcium 9.5 mg/dL (8.4-10.2); Carbon Dioxide 23 mmol/L (22-30); Chloride 104 mmol/L (98-107); Estimated CRCL calculation 120 ml/min; Estimated Glomerular Filt Rate > 60; Glucose 90 mg/dL (65-110); Lipase 59 U/L (23-300); Potassium 4.2 mmol/L (3.4-5.0); Sodium 138 mmol/L (137-145); Total Protein 8.2 g/dL (6.3-8.2)
[2025-02-07] MEDS: LACTATED RINGERS 1,000 ML 999 ML IV CONT (20:23)
--- OUTSIDE RECORDS SUMMARY | 2025-02-07 20:34 | XMS_ITS | Clinical Summary ---
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
--- OUTSIDE RECORDS SUMMARY | 2025-02-07 20:34 | XMS_ITS | Clinical Summary ---
Author Organization [facility] Address [facility] [place] [address] Care Team Providers Care Health Care Sanitary Technician Name Role Phone Juan Alberto Foss MD Primary Care Provider Allergies Active Allergy Reactions Criticality Noted Date Comments Metoclopramide Other (see comment) 04/28/2019 Can't control muscles in face Medications vitamin, low iron, ( VITAMIN WITH IRON) 27-0.8 MG tablet Take 1 tablet by mouth daily. Active ondansetron 4 MG tablet Take 4 mg by mouth every 8 (eight) hours as needed for Nausea. Active vitamin D2, ergocalciferol, 54824 UNITS capsule Take 50,000 Units by mouth [...] age to complete this topic Insurance MEDICAID [facility] Care Teams Health Care Sanitary Technician Relationship Specialty Start Date End Date Juan Alberto Foss MD [address] [facility] [address] [place] [address] PCP - General INTERNAL MEDICINE 04/28/19
[2025-02-07] MEDS: ONDANSETRON INJ 4 MG/2 ML VIAL IV PUSH (20:35)
[2025-02-07] MEDS: FAMOTIDINE 20 MG/2 ML VIAL IV PUSH (20:35)
--- NOTE | 2025-02-07 20:58 | ED_ITS ---
HPI - Nausea/Vomiting/Diarrhea General Chief complaint: Nausea/Vomiting/Diarrhea Stated complaint: dehydration- and vomiting Time Seen by Provider: 02/07/25 19:42 Source: patient Mode of arrival: ambulatory Limitations: no limitations History of Present Illness HPI Narrative: This is a 30-year-old female that presents to the emergency department for nausea and vomiting. She is currently 8 weeks . Has history of hyperemesis. She has had ultrasound this . She sees Dr. Prakash. She has had Zofran and Phenergan at home with little relief. Continues to be continuously nauseous. Was prompted to be seen in the ER for IV fluids. Denies any abdominal pain, bleeding. Related Data Allergies Allergy/AdvReac Type Severity Reaction Status Date / Time metoclopramide (From Reglan) Allergy Other Verified 02/07/25 17:58 phenazopyridine (From Allergy Other Verified 02/07/25 17:58 Pyridium) Review of Systems 2 Review of Systems: All systems reviewed & are unremarkable except as noted in HPI and below PMFSH Past Medical History Medical History No active medical problems (normal spontaneous vaginal delivery) Family History Family History Mother Fibroid Social History Social History Smoking status: Never smoker Substance use: never Spiritual care concerns: No Exam 2 Narrative: GENERAL: Well-appearing, well-nourished, and in no acute distress. HEAD: Normocephalic, atraumatic. EYES: EOMI. CHEST: Clear to auscultation. No respiratory distress. No wheezes rales or rhonchi HEART: Regular rate and rhythm. No murmur heard. Normal peripheral pulses. ABDOMEN: Soft, nontender, nondistended, normal active bowel sounds. EXTREMITIES: Normal range of motion. No edema. SKIN: Warm, dry, no rash. NEURO: No focal deficits. Alert and oriented x3. PSYCH: Normal mood and affect Course Course Emergency Course: Patient improved. Tolerating p.o. challenge Vital Signs Vital signs: Vital Signs Temperature 97.6 F 02/07/25 17:55 Pulse Rate 78 02/07/25 17:55 Respiratory Rate 20 02/07/25 17:55 Blood Pressure 141/84 H 02/07/25 17:55 Pulse Oximetry 100 02/07/25 17:55 Oxygen Delivery Room Air 02/07/25 17:55 Temperature 97.6 F 02/07/25 17:55 Pulse Rate 66 02/07/25 19:56 Respiratory Rate 17 02/07/25 19:56 Blood Pressure 129/97 H 02/07/25 19:56 Pulse Oximetry 100 02/07/25 19:56 Oxygen Delivery Room Air 02/07/25 19:43 [facility] Narrative Medical decision making narrative: Patient presents to the emergency department for nausea and vomiting in first trimester . She is afebrile and nontoxic appearing. Her vitals are stable. Cbc shows mild hemoconcentration. Metabolic panel without concerning findings. Urine without evidence of infection. Patient does have a confirmed IUP. Follows with Dr. Prakash. Patient feeling improved following hydrated. Tolerating PO challange. Will follow up with her OB Differential Diagnosis Differential Diagnosis: Nausea and vomiting in , dehydration, electrolyte derangement Lab Data [facility] Lab Attestation statement: I personally reviewed the patient's lab results. 02/07/25 19:54 02/07/25 19:54 Labs: Lab Results 02/07/25 02/07/25 02/07/25 Range/Units 19:54 21:44 21:48 WBC 9.7 (4.5-10.0) K/mm3 RBC 5.44 H (4.2-5.4) M/mm3 Hgb 15.3 H (12.0-15.0) g/dL Hct 44.2 (37.0-47.0) % MCV 81.3 (80-100) fl MCH 28.1 (26-34) pg MCHC 34.6 (32-36) g/dl RDW 12.8 (11.5-14.5) % Plt Count 255 (150-375) k/mm3 MPV 11.4 H (7.4-10.4) fl Immature Gran % (Auto) 0.3 (0-0.5) % Neut % (Auto) 68.2 (45.5-73.1) % Lymph % (Auto) 24.1 (18.3-44.2) % [facility] % (Auto) 4.5 (2.6-8.5) % Eos % (Auto) 2.3 (0-4.4) % Baso % (Auto) 0.6 (0.2-1.2) % Lymph # (Auto) 2.33 (0.9-3.2) K/mm3 [facility] # (Auto) 0.4 (0.1-0.6) K/mm3 Eos # (Auto) 0.2 (0-0.3) K/mm3 Baso # (Auto) 0.1 (0.0-0.1) K/mm3 Abs Immat Gran (auto) 0.03 (0.00-0.031) K/mm3 Absolute Neuts (auto) 6.6 (1.3-6.7) K/mm3 Absolute Nucleated RBC 0.000 (0.0-0.012) K/mm3 Nucleated RBC % 0.0 (0.0-0.2) % Sodium 138 (137-145) mmol/L Potassium 4.2 (3.4-5.0) mmol/L Chloride 104 (98-107) mmol/L Carbon Dioxide 23 (22-30) mmol/L Anion Gap 11 (4-12) mmol/L BUN 12 (7-17) mg/dL Creatinine 0.71 (0.7-1.0) mg/dL Estim Creat Clear Calc 120 ml/min Estimated GFR > 60 (59 - ) Glucose 90 (65-110) mg/dL Calcium 9.5 (8.4-10.2) mg/dL Total Bilirubin 1.4 H (0.2-1.3) mg/dL AST 21 (14-36) U/L ALT 13 (6-35) U/L Alkaline Phosphatase 60 (38-126) U/L Total Protein 8.2 (6.3-8.2) g/dL Albumin 4.7 (3.5-5.1) g/dL Lipase 59 (23-300) U/L Urine Color Dark yellow (Yellow) Urine Appearance Cloudy H (Clear) Urine pH 6.0 (5.0-9.0) Ur Specific [place] 1.036 H (1.001-1.035) Urine Protein Trace (Negative) mg/dL Urine Glucose (UA) Negative (Negative) mg/dL Urine Ketones 1+ H (Negative) mg/dL Ur Blood (Man) Negative (Negative) Urine Nitrate Negative (Negative) Urine Bilirubin Negative (Negative) Urine Urobilinogen 1.0 (<2.0) mg/dL Add Ur Microanalysis Reviewed Leukocyte Esterase Rfl Negative (Negative) ALEXI/UL Urine RBC 11-20 H (0-2) /hpf Urine WBC 0-5 (0-3) /hpf Ur Squamous Epith Cells Few (Few) /hpf Urine Bacteria 1+ H /hpf Urine Casts 0-2 Urine Mucus Present /lpf POC Urine HCG, Qual Positive (Negative) Critical Care Time Critical Care Time Critical Care Time: No Discharge Plan Discharge Clinical Impression: Nausea and vomiting during Patient Disposition: Home Condition: Improved Instructions: Nausea and Vomiting in (ED) Additional Instructions: Return to the ER if you experience fever, chest pain, shortness of breath, abdominal pain with nausea and vomiting, you are unable to keep down liquids or solids, pelvic cramping, vaginal bleeding, or any other symptoms that are concerning to you Take a Vitamin B6 and Unisom (25mg tab) nightly. You can get these medications over the counter. This will help prevent nausea. Zofran or Phenergan as needed for nausea. Small, frequent meals. Levels diet. Remain well hydrated Follow up with your OB Patient Language: Brazilian Prescriptions: No Action acetaminophen [Mapap (acetaminophen)] 325 mg Tablet 650 mg PO Q6H PRN (Reason: Mild Pain (1-3) Or Headache) 0RF Dermoplast (with menthol) 20-0.5 % Aerosol 1 spray topical PRN PRN (Reason: Perineal Discomfort) 0RF polysaccharide iron complex 150 mg iron Capsule 150 mg PO BIDWM 0RF docusate sodium 100 mg Capsule 100 mg PO BID PRN (Reason: Constipation) 0RF zolpidem 5 mg Tablet 5 mg PO HS PRN (Reason: Insomnia) 0RF ibuprofen 600 mg Tablet 600 mg PO Q6H PRN (Reason: Cramping) 0RF Vsm-W-Hfxezg Cream 1 applic topical PRN PRN (Reason: Sore Nipples) 0RF KPN Tablet 1 tab PO DAILY 0RF Preparation H (Witch Jessica) 50 % Pads, Medicated 1 pad topical PRN PRN (Reason: Perineal Discomfort) 0RF Follow-up/Referrals: Chanda Prakash MD [Primary Care Provider, REFRIGERATION MECHANIC]
[2025-02-07 21:51] LABS: BEDSIDEPREGUCG Positive (Negative)
[2025-02-07 22:07] LABS: Add Urine Microscopic? YES; Appearance Urine Cloudy (Clear); Glucose Urine UA Negative (Negative); Leukocyte Esterase Ur Negative LEU/UL (Negative); Need Manual Microscopic Reviewed; Nitrate Urine Negative (Negative); Non Pathogenic Casts 0-2; Specific Grav Ur 1.036 (1.001-1.035)
--- NOTE | 2025-02-07 22:53 | PC.NURSE ---
Pt given water and crackers for PO challenge
[2025-02-07 23:32] VITALS: BP 123/91; PULSE 71; RESP 16; TEMP 36.7; O2SAT 99
[2025-02-07 23:33] VITALS: BP 123/91; PULSE 71; RESP 16; TEMP 36.7; O2SAT 99
== END 2025-02-07 23:36 | disposition home or self-care (01) ==
PROVIDERS: Emergency Provider Physician Assistant; PCP Obstetrics & Gynecology Gynecology
DX: O21.0 Mild hyperemesis gravidarum (principal); Z3A.08 8 weeks gestation of pregnancy
CPT/HCPCS: 36415; 80053; 81001; 81025; 83690; 85025; 96361; 96374; 96375; 99284; J2405; J7120

== ENCOUNTER 2025-02-14 10:36 | Emergency (ER) | payer OTHER, SELFPAY ==
--- OUTSIDE RECORDS SUMMARY | 2025-02-14 10:38 | XMS_ITS | Clinical Summary ---
Author Organization [facility] Address [facility] [place] [address] Care Team Providers Care Brim Stiffener Name Role Phone Juan Alberto Foss MD Primary Care Provider [phone] Allergies Active Allergy Reactions Criticality Noted Date Comments Metoclopramide Other (see comment) 04/28/2019 Can't control muscles in face Medications vitamin, low iron, ( VITAMIN WITH IRON) 27-0.8 MG tablet Take 1 tablet by mouth daily. Active ondansetron 4 MG tablet Take 4 mg by mouth every 8 (eight) hours as needed for Nausea. Active vitamin D2, ergocalciferol, 71598 UNITS capsule Take 50,000 Units by mouth [...] age to complete this topic Insurance MEDICAID [facility] Care Teams Brim Stiffener Relationship Specialty Start Date End Date Juan Alberto Foss MD [address] [facility] [address] [place] [address] PCP - General INTERNAL MEDICINE 04/28/19
--- OUTSIDE RECORDS SUMMARY | 2025-02-14 10:38 | XMS_ITS | Clinical Summary ---
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
[2025-02-14 10:45] VITALS: BP 120/77; PULSE 55; RESP 16; TEMP 36.8; O2SAT 100
--- OUTSIDE RECORDS SUMMARY | 2025-02-14 12:13 | XMS_ITS | Clinical Summary ---
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 [id number] Care Teams Cuprous Chloride Operator Relationship Specialty Start Date End Date Juan Alberto Foss MD [address] [place] [address] [address] [place], [place] [id number] PCP - General Internal Medicine 04/09/19
--- OUTSIDE RECORDS SUMMARY | 2025-02-14 12:13 | XMS_ITS | Clinical Summary ---
Author Organization [facility] Address [facility] [place] [address] Care Team Providers Care Dye Room Helper Name Role Phone Juan Alberto Foss MD Primary Care Provider [phone] Allergies Active Allergy Reactions Criticality Noted Date Comments Metoclopramide Other (see comment) 04/28/2019 Can't control muscles in face Medications vitamin, low iron, ( VITAMIN WITH IRON) 27-0.8 MG tablet Take 1 tablet by mouth daily. Active ondansetron 4 MG tablet Take 4 mg by mouth every 8 (eight) hours as needed for Nausea. Active vitamin D2, ergocalciferol, 07386 UNITS capsule Take 50,000 Units by mouth [...] age to complete this topic Insurance MEDICAID [facility] Care Teams Dye Room Helper Relationship Specialty Start Date End Date Juan Alberto Foss MD [address] [facility] [address] [place] [address] PCP - General INTERNAL MEDICINE 04/28/19
--- NOTE | 2025-02-14 12:23 | ED_ITS ---
HPI - Nausea/Vomiting/Diarrhea General Chief complaint: Nausea/Vomiting/Diarrhea Stated complaint: vomiting Time Seen by Provider: 02/14/25 12:03 Source: patient Mode of arrival: ambulatory Limitations: no limitations History of Present Illness HPI Narrative: This is a 30-year-old female approximately 9 weeks who presents the ED for nausea and vomiting. Patient states that for the last couple weeks, she has been having significant nausea vomiting and has only been able tolerate small bits of food and intermittent water. She had this problem with her last and was admitted for at least once. Denies vaginal bleeding, abdominal cramping. She also notes some diarrhea this morning that was new. No known sick contacts. Related Data Allergies Allergy/AdvReac Type Severity Reaction Status Date / Time metoclopramide (From Reglan) Allergy Other Verified 02/07/25 17:58 phenazopyridine (From Allergy Other Verified 02/07/25 17:58 Pyridium) Review of Systems 2 Review of Systems: All systems reviewed & are unremarkable except as noted in HPI and below PMFSH Past Medical History Medical History (normal spontaneous vaginal delivery) No active medical problems Family History Family History Mother Fibroid Social History Social History Smoking status: Never smoker Substance use: never Spiritual care concerns: No Exam 2 Narrative: APPEARANCE: No acute distress, nontoxic, resting in bed EYES: EOMI HEENT: Normocephalic, atraumatic, mucous membranes dry RESPIRATORY: No respiratory distress Clear to auscultation bilaterally with no rhonchi wheezing or rales. CARDIOVASCULAR: Regular rate and rhythm without murmurs rubs or gallops. ABDOMINAL: Soft, nontender, nondistended, no rebound or guarding MUSCULOSKELETAl: Moves all extremities. No clubbing, cyanosis or edema. NEURO: Awake and alert. Following commands, speech normal, no focal deficits SKIN:: Warm, dry. No rashes lesions or abrasions PSYCHIATRIC: Normal affect/mood, Course Vital Signs Vital signs: Vital Signs Temperature 98.3 F 02/14/25 10:45 Pulse Rate 55 L 02/14/25 10:45 Respiratory Rate 16 02/14/25 10:45 Blood Pressure 120/77 02/14/25 10:45 Pulse Oximetry 100 02/14/25 10:45 Temperature 98.3 F 02/14/25 10:45 Pulse Rate 55 L 02/14/25 10:45 Respiratory Rate 16 02/14/25 10:45 Blood Pressure 120/77 02/14/25 10:45 Pulse Oximetry 100 02/14/25 10:45 MDM MDM Narrative Medical decision making narrative: 30-year-old female Presenting for nausea, vomiting. On initial evaluation patient was in no acute distress afebrile, hemodynamic stable. Differentials include but are not limited to: Hyperemesis gravidarum, gastroenteritis, enterocolitis, electrolyte abnormality Notable exam findings: Dry mucous membranes, heart and lungs clear, abdomen soft and nontender I personally reviewed the patient's lab result. Notable lab findings: Mild leukocytosis and hemosiderosis, likely consistent with hemoconcentration. Anion gap at 13 with metabolic acidosis with bicarb at 20, likely consistent with dehydration. UA consistent with dehydration Patient was given Zofran and 1 L NS bolus. She continued to have some mild nausea so she was given 2 L normal saline, also given Phenergan. She did have improvement of her symptoms. I reviewed the patient's prior records and she was given prescriptions for Zofran 8 mg q.12 and Phenergan 12.5 mg q.6 hours, she was given this prescription again. She was advised follow-up with her OBGYN the next week for re-evaluation. Patient was agreeable to this plan. Given strict return precautions. Differential Diagnosis Differential Diagnosis: Hyperemesis gravidarum, gastroenteritis, enterocolitis, electrolyte abnormality Lab Data 02/14/25 12:26 02/14/25 12: Labs: Lab Results 02/14/25 02/14/25 02/14/25 Range/Units 12: 12: 13:40 WBC 10.7 H (4.5-10.0) K/mm3 RBC 5.52 H (4.2-5.4) M/mm3 Hgb 15.5 H (12.0-15.0) g/dL Hct 43.9 (37.0-47.0) % MCV 79.5 L (80-100) fl MCH 28.1 (26-34) pg MCHC 35.3 (32-36) g/dl RDW 12.3 (11.5-14.5) % Plt Count 229 (150-375) k/mm3 MPV 11.5 H (7.4-10.4) fl Immature Gran % (Auto) 0.5 (0-0.5) % Neut % (Auto) 88.4 H (45.5-73.1) % Lymph % (Auto) 7.8 L (18.3-44.2) % [place] % (Auto) 2.8 (2.6-8.5) % Eos % (Auto) 0.2 (0-4.4) % Baso % (Auto) 0.3 (0.2-1.2) % Lymph # (Auto) 0.83 L (0.9-3.2) K/mm3 [place] # (Auto) 0.3 (0.1-0.6) K/mm3 Eos # (Auto) 0.0 (0-0.3) K/mm3 Baso # (Auto) 0.0 (0.0-0.1) K/mm3 Abs Immat Gran (auto) 0.05 H (0.00-0.031) K/mm3 Absolute Neuts (auto) 9.5 H (1.3-6.7) K/mm3 Absolute Nucleated RBC 0.000 (0.0-0.012) K/mm3 Nucleated RBC % 0.0 (0.0-0.2) % Sodium 136 L (137-145) mmol/L Potassium 3.8 (3.4-5.0) mmol/L Chloride 103 (98-107) mmol/L Carbon Dioxide 20 L (22-30) mmol/L Anion Gap 13 H (4-12) mmol/L BUN 14 (7-17) mg/dL Creatinine 0.73 (0.7-1.0) mg/dL Estim Creat Clear Calc 117 ml/min Estimated GFR > 60 (59 - ) Glucose 74 (65-110) mg/dL Calcium 9.7 (8.4-10.2) mg/dL Total Bilirubin 2.0 H (0.2-1.3) mg/dL AST 25 (14-36) U/L ALT 13 (6-35) U/L Alkaline Phosphatase 73 (38-126) U/L Total Protein 8.4 H (6.3-8.2) g/dL Albumin 4.8 (3.5-5.1) g/dL Urine Color Dark yellow (Yellow) Urine Appearance Clear (Clear) Urine pH 5.5 (5.0-9.0) Ur Specific [place] 1.032 (1.001-1.035) Urine Protein 1+ H (Negative) mg/dL Urine Glucose (UA) Negative (Negative) mg/dL Urine Ketones 4+ H (Negative) mg/dL Ur Blood (Man) Negative (Negative) Urine Nitrate Negative (Negative) Urine Bilirubin 1+ H (Negative) Urine Urobilinogen 1.0 (<2.0) mg/dL Add Ur Microanalysis Reviewed Leukocyte Esterase Rfl Negative (Negative) ALEXI/UL Urine RBC 6-10 H (0-2) /hpf Urine WBC 0-5 (0-3) /hpf Ur Squamous Epith Cells Few (Few) /hpf Urine Bacteria Rare /hpf Urine Casts 6-10 Influenza A (RT-PCR) Negative (Negative) Influenza B (RT-PCR) Negative (Negative) RSV (RT-PCR) Negative (Negative) SARS-CoV-2 RNA (RT-PCR) Negative (Negative) Discharge Plan Discharge Clinical Impression: Hyperemesis gravidarum, Dehydration Patient Disposition: Home Condition: Stable Instructions: Antibiotic Form, Hyperemesis Gravidarum (ED), Gastroenteritis (ED) Additional Instructions: Take zofran and phenergan as prescribed. Follow up with Dr. Prakash in the next week for reevaluation. REturn to the ED for new or worsening symptoms. Patient Language: Pakistani Prescriptions: New promethazine 12.5 mg tablet 12.5 mg PO QID Qty: 56 0RF ondansetron 8 mg tablet,disintegrating 8 mg PO Q12H PRN (Reason: nausea and vomiting) Qty: 30 0RF No Action acetaminophen [Mapap (acetaminophen)] 325 mg Tablet 650 mg PO Q6H PRN (Reason: Mild Pain (1-3) Or Headache) 0RF Dermoplast (with menthol) 20-0.5 % Aerosol 1 spray topical PRN PRN (Reason: Perineal Discomfort) 0RF polysaccharide iron complex 150 mg iron Capsule 150 mg PO BIDWM 0RF docusate sodium 100 mg Capsule 100 mg PO BID PRN (Reason: Constipation) 0RF zolpidem 5 mg Tablet 5 mg PO HS PRN (Reason: Insomnia) 0RF ibuprofen 600 mg Tablet 600 mg PO Q6H PRN (Reason: Cramping) 0RF Yot-C-Njrzai Cream 1 applic topical PRN PRN (Reason: Sore Nipples) 0RF KPN Tablet 1 tab PO DAILY 0RF Preparation H (Rachael Lopez) 50 % Pads, Medicated 1 pad topical PRN PRN (Reason: Perineal Discomfort) 0RF Follow-up/Referrals: Chanda Prakash MD [Primary Care Provider, [employer]]
[2025-02-14 12:41] LABS: Hematocrit 43.9 % (37.0-47.0); Hemoglobin 15.5 g/dL (12.0-15.0); Immature Granulocyte Percent A 0.5 % (0-0.5); Lymphocytes Absolute Auto 0.83 K/mm3 (0.9-3.2); Mean Corpuscular HGB Conc 35.3 g/dl (32-36); Mean Corpuscular Hemoglobin 28.1 pg (26-34); Mean Corpuscular Volume 79.5 fl (80-100); Nucleated Red Blood Cells Absolute Auto 0.000 K/mm3 (0.0-0.012); Nucleated Red Blood Cells Perc 0.0 % (0.0-0.2); Platelet Count Result 229 k/mm3 (150-375); Red Blood Count 5.52 M/mm3 (4.2-5.4); White Blood Count 10.7 K/mm3 (4.5-10.0)
[2025-02-14] MEDS: SODIUM CHLORIDE 0.9% IV 1,000 ML 999 ML IV CONT ×3 (12:55→14:22)
[2025-02-14] MEDS: ONDANSETRON INJ 4 MG/2 ML VIAL IV PUSH (12:56)
[2025-02-14 12:58] LABS: Alanine Aminotransferase 13 U/L (6-35); Albumin Level 4.8 g/dL (3.5-5.1); Alkaline Phosphatase 73 U/L (38-126); Anion Gap 13 mmol/L (4-12); Aspartate Amino Transferase 25 U/L (14-36); Bilirubin,Total 2.0 mg/dL (0.2-1.3); Blood Urea Nitrogen 14 mg/dL (7-17); Calcium 9.7 mg/dL (8.4-10.2); Carbon Dioxide 20 mmol/L (22-30); Chloride 103 mmol/L (98-107); Estimated CRCL calculation 117 ml/min; Estimated Glomerular Filt Rate > 60; Glucose 74 mg/dL (65-110); Potassium 3.8 mmol/L (3.4-5.0); Sodium 136 mmol/L (137-145); Total Protein 8.4 g/dL (6.3-8.2)
[2025-02-14 14:04] LABS: Influenza A QL RT-PCR Negative (Negative); Influenza B QL RT-PCR Negative (Negative); RSV RNA, RT-PCR Negative (Negative); SARS-CoV-2 RNA PCR Negative (Negative)
[2025-02-14 14:07] LABS: Add Urine Microscopic? YES; Appearance Urine Clear (Clear); Glucose Urine UA Negative (Negative); Leukocyte Esterase Ur Negative LEU/UL (Negative); Need Manual Microscopic Reviewed; Nitrate Urine Negative (Negative); Specific Grav Ur 1.032 (1.001-1.035)
[2025-02-14] MEDS: PROMETHAZINE HCL 12.5 MG TABLET PO (14:22)
[2025-02-14 16:15] VITALS: BP 102/66; PULSE 75; RESP 16; O2SAT 100
== END 2025-02-14 16:15 | disposition home or self-care (01) ==
PROVIDERS: Emergency Provider Student in an Organized Health Care Education/Training Program; PCP Obstetrics & Gynecology Gynecology
DX: O21.1 Hyperemesis gravidarum with metabolic disturbance (principal); Z3A.09 9 weeks gestation of pregnancy; Z20.822 Contact with and (suspected) exposure to COVID-19
CPT/HCPCS: 36415; 80053; 81001; 85025; 87637; 96361; 96374; 99284; A9270; J2405; J7030